=== PATIENT | female | born 2000 | race Caucasian/White ===

== ENCOUNTER 2021-02-07 17:32 | Emergency (ER) | payer OTHER, MEDICAID ==
[~2021-02-07] VITALS: Ht 154.9 cm; Wt 45.0 kg
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
--- NOTE | 2021-02-07 18:23 | NUR ---
Report received at bedside and care assumed. Pt ALOC but follows commands. High safety risk so 1:1 observation with PSA staff at doorway to monitor for pt climbing out of bed and keeping pt safety maintained.
--- NOTE | 2021-02-07 18:24 | NUR ---
Bedside report to NOAM Valadez. Pt moved to new room to be watched by sitter.
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
--- NOTE | 2021-02-07 18:34 | NUR ---
cylinder worker at bedside with pt.
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
--- NOTE | 2021-02-07 19:25 | NUR ---
Pt resting with eyes open with sitter at bedside. Pt offered dinner tray but declined. Educated pt to let RN know when she gets hungry.
--- NOTE | 2021-02-07 19:46 | NUR ---
Pt assisted to restroom and back to bed. Lights dimmed and pillow provided for comfort.
--- NOTE | 2021-02-07 21:00 | NUR ---
Report given to Jerome, RN and RN orientee and care transferred. SW note with numbers to [facility] and Yassine handed to on-coming RNs. 1:1 sitter remains at bedside for pt safety.
--- NOTE | 2021-02-07 21:10 | NUR ---
Report received from NOAM Valadez. Assumed care of pt at this time.
--- NOTE | 2021-02-07 21:30 | NUR ---
Late entry: Pt up to restroom. Steady upon ambulation. Bruises noted to bilat pt's legs. Pt has flat affect and speaks in soft voice. Makes minimal eye contact. Sitter in room at bedside for safety. Pt appears calm and cooperative at this time. Will cont to monitor pt.
--- NOTE | 2021-02-07 22:30 | NUR ---
Late Entry: Pt currently sleeping on gurney. No acute distress noted at this time. Resp even and unlabored. Pt awakens easily to name being called. Sitter still at bedside. Pt AO X 4. Pt cont to have a flat affect and speak in a quiet voice. Pt calm and cooperative at this time. Pt on cont bp and SPO2 monitors. Call light within reach. Will cont to monitor pt.
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
--- NOTE | 2021-02-07 23:45 | NUR ---
PT ESCORTED TO DC DESK THEN TO [facility] BY THIS RN. VISUALIZED PT GETTING INTO [facility] AND PROVIDED COLLISION TECHNICIAN W/ VOUCHER. VOUCHER COMPLETED BY PRIMARY RN. PT LEFT IN [facility]AXI. RESP EVEN AND UNLABORED, YSABEL.
[2021-02-08 00:01] VITALS: BP 117/58
== END 2021-02-07 23:51 | disposition home or self-care (01) ==
LOC: EDBD 17:32 → ED 23:43 → MERGE 23:43 → ED 23:51
DX: F10.120 Alcohol abuse with intoxication, uncomplicated (principal); Y90.0 Blood alcohol level of less than 20 mg/100 ml
CPT/HCPCS: 99283

== ENCOUNTER 2021-02-10 07:23 | Emergency (ER) | payer OTHER, MEDICAID ==
[~2021-02-10] VITALS: Ht 170.2 cm; Wt 55.0 kg
[2021-02-10 07:31] VITALS: BP 101/63
[2021-02-10 07:47] LABS: BASOPHILS % (AUTO) 1 % (0-1); EOSINOPHILS % (AUTO) 0 % (1-7); LYMPHOCYTES % (AUTO) 22 % (22-44); MEAN CORPUSCULAR HEMOGLOBIN 31.7 pg (27.0-34.8); MEAN CORPUSCULAR HGB CONC 34.5 g/dL (32.4-35.8); MEAN PLATELET VOLUME 7.7 fL (7.4-10.4); MONOCYTES % (AUTO) 8 % (2-9); NEUTROPHILS % (AUTO) 70 % (42-75); PLATELET COUNT 328 x10^3/uL (130-400); RED BLOOD COUNT 4.59 x10^6/uL (3.82-5.3)
[2021-02-10] MEDS ORDERED: ACETAMINOPHEN 325 MG TABLET ONE (07:49)
[2021-02-10 07:50] LABS: MD NO
[2021-02-10] MEDS ORDERED: ACETAMINOPHEN 325 MG TABLET PO ONE (08:00)
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
[2021-02-10 08:05] LABS: ALBUMIN 4.1 g/dL (3.4-5.0); ANION GAP 3 mmol/L (5-15); CALCIUM 8.9 mg/dL (8.5-10.1); CHLORIDE 108 mmol/L (98-107)
[2021-02-10 08:08] LABS: SALICYLATE LEVEL < 1.7 mg/dL (2.8-20.0)
[2021-02-10 08:10] LABS: ALKALINE PHOSPHATASE 56 U/L (45-117); BILIRUBIN,TOTAL 0.6 mg/dL (0.2-1.0); CREATININE 0.74 mg/dL (0.55-1.02); TOTAL PROTEIN 7.4 g/dL (6.4-8.2)
[2021-02-10 08:16] LABS: ALANINE AMINOTRANSFERASE 31 U/L (12-78)
--- NOTE | 2021-02-10 09:11 | NUR ---
PT ABLE TO TALK WITH MOTHER ON TELEPHONE. MOTHER REQUEST CAB TO TAKE HOME. PT PROVIDED WITH CAB VOUCHER. ADDRESS VERIFIED. CAB CALLED ON PT BEHALF BY THIS RN.
== END 2021-02-10 09:15 | disposition home or self-care (01) ==
LOC: ED 08:39
DX: S80.02XA Contusion of left knee, initial encounter (principal); S80.01XA Contusion of right knee, initial encounter; Z72.9 Problem related to lifestyle, unspecified; F10.129 Alcohol abuse with intoxication, unspecified; Y90.0 Blood alcohol level of less than 20 mg/100 ml; W18.30XA Fall on same level, unspecified, initial encounter; Y93.89 Activity, other specified; Y92.89 Other specified places as the place of occurrence of the external cause; Y99.8 Other external cause status
CPT/HCPCS: 36415; 80053; 80299; 80320; 80329; 84703; 85025; 99283; G0480

== ENCOUNTER 2021-04-27 03:46 | Emergency (ER) | payer OTHER, MEDICAID | END 2021-04-27 03:48 | LOC: ED 03:47 | DX: R68.89 Other general symptoms and signs (principal); Z53.21 Procedure and treatment not carried out due to patient leaving prior to being seen by health care provider ==